=== PATIENT | female | born 2000 | race Hispanic/Latino ===

== ENCOUNTER 2023-12-16 15:27 | Emergency (ER) | payer OTHER, SELFPAY ==
[2023-12-16 15:28] VITALS: BP 135/85; PULSE 65; RESP 16; TEMP 36.3; O2SAT 100; BMI 17.6
--- NOTE | 2023-12-16 15:59 | US_ITS ---
STUDY: ULTRASOUND TRANSVAGINAL CLINICAL: Female, 23 years old. pelvic pain and may be -- pelvic pain and bleeding TECHNIQUE: Transabdominal COMPARISON: None. FINDINGS: Normal uterine size measuring 6.9 x 5.2 x 4.6 cm in maximal craniocaudal dimension. There are no myometrial masses. Normal endometrial thickness measuring 5.9 mm. There are no endometrial masses, and there is no fluid in the endometrial cavity. Normal uterine cervix. Normal right ovary, measuring 2.5 x 1.7 x 1.4 cm. There are multiple follicles without a dominant cyst. Normal left ovary, measuring 1.8 x 2 x 1.4 cm. There are multiple follicles without a dominant cyst. There is no free fluid in the pelvis. US/Transvaginal Non- IMPRESSION: Normal pelvic sonogram for age Electronically Signed: Alfonso Moran MD at 17:25 EDT ,
--- NOTE | 2023-12-16 16:07 | EX.ED.DYSGE1 ---
HPI <Lay Burton RN - Last Filed: 12/16/23 16:15> History of Present Illness Chief Complaint: Abd Pain Informant: patient Onset/Context/Timing Onset: Month(s) (1) Context: Gradual Onset Timing: Continuous Quality: Aching, cramping Location: Lower abdomen Current Severity: 5/10 Maximum Severity: 5/10 Worsened by: Nothing Relieved by: Nothing Associated Symptoms Associated Symptoms: No menses x 3 months Narrative Narrative: Patient is a 23-year-old female, Montserratian speaking, with no past medical history who was referred from the [facility] for lower abdominal pain x 1 month, no menses x 3 months. HPI, exam, and plan of care obtained with the use of computer graphic designer services. Patient with dark brown vaginal bleeding beginning 12/14/2023. Patient reports she feels as if she is bloated. + Nausea. Denies prior abdominal surgeries, prior pregnancies. Patient also reports dysuria, increased urinary frequency, and feeling as if she does not empty her bladder completely. She denies any recent hospitalization or travel. Prior similar symptoms: No Recent Illness/Hospitalization: No PFSH <Lay Burton RN - Last Filed: 12/16/23 16:15> PFSH Allergy/AdvReac Type Severity Reaction Status Date / Time No Known Allergies Allergy Verified 12/16/23 15:31 Social History Smoking Status: Never smoker ROS <aLy Burton RN - Last Filed: 12/16/23 16:15> ROS ED Constitutional Constitutional ED: Denies chills, fever(s) or weight loss Eyes Eyes: Denies change in vision ENT ENT ED: Denies ear pain, rhinorrhea or sore throat Cardiovascular Cardiovascular: Denies chest pain, orthopnea, palpitations or racing heartbeat Respiratory/Chest Respiratory/Chest: Denies cough, dyspnea or orthopnea Gastrointestinal Gastrointestinal: Reports abdominal pain and nausea; Denies constipation, diarrhea, melena or vomiting Genitourinary Genitourinary ED: Reports dysuria, LMP (females 10-50) Details: Comment: (09/15/2023) and urinary frequency; Denies hematuria Musculoskeletal Musculoskeletal: Denies arthralgias, back pain or myalgias Integumentary Denies abscess, Abrasions or rash Neurologic Neurologic: Denies headache(s), paresthesias or weakness Hematologic/Lymphatic Hematologic/Lymphatic: Reports systems reviewed and no addt'l complaints, except as documented EXAM <Lay Burton RN - Last Filed: 12/16/23 16:15> Physical Exam Narrative Exam Narrative: Patient is awake, alert, cooperative, good historian. Const Vital Signs: 12/16/23 15:28 Temperature 97.4 F L Temperature Source Temporal Pulse Rate 65 Respiratory Rate 16 Blood Pressure 135/85 H Blood Pressure Mean 101 Pulse Ox 100 Oxygen Delivery Method Room Air Positive well nourished and well developed General Appearance ED: well developed and NAD HEENT Reports moist mucous membranes Eyes PERRL Neck no lymphadenopathy, supple and no JVD Chest Wall inspection of chest normal and palpation of chest normal Resp normal respiratory effort and clear to auscultation bilaterally Auscultation: Negative for rales, rhonchi or wheezes Cardio regular rate, regular rhythm, S1 normal heart sound and S2 normal heart sound GI normal to inspection, nondistended, normoactive bowel sounds GI Narrative: Lower abdominal tenderness with palpation Auscultation: normoactive bowel sounds Palpation: soft and tender Back/Spine no CVA tenderness Extremity normal to inspection General Extremety ED: Negative for edema or tenderness General Extremity: Negative for edema Neuro oriented x3 Sensorium / Orientation: alert Motor Exam: strength 5/5 throughout Psych mental status grossly normal Skin no rashes or lesions noted, no wounds and skin turgor normal <Dr. Mitesh Hernandez MD - Last Filed: 12/16/23 16:27> Physical Exam Const Vital Signs: 12/16/23 15:28 Temperature 97.4 F L Temperature Source Temporal Pulse Rate 65 Respiratory Rate 16 Blood Pressure 135/85 H Blood Pressure Mean 101 Pulse Ox 100 Oxygen Delivery Method Room Air MDM <Lay Burton RN - Last Filed: 12/16/23 16:15> MDM MDM Narrative Medical decision making narrative: IV line initiated. Labwork obtained to evaluate for leukocytosis, anemia, and electrolyte derangement. Urinalysis obtained to evaluate for infection/hematuria. Pelvic ultrasound obtained to evaluate for , ovarian cyst, acute intra-abdominal process. History & Record Review Discussion w/independent historian: Patient Differential Diagnosis Abdominal Pain: UTI Differential Diagnosis: Management Discussion w/another healthcare provider: Other (Dr. Hernandez, ED provider) <Dr. Mitesh Hernandez MD - Last Filed: 12/16/23 16:27> MDM MDM Narrative Medical decision making narrative: IV line initiated. Labwork obtained to evaluate for leukocytosis, anemia, and electrolyte derangement. Urinalysis obtained to evaluate for infection/hematuria. Pelvic ultrasound obtained to evaluate for , ovarian cyst, acute intra-abdominal process. I have personally performed a face to face assessment of the patient and have reviewed the LAURA Note. I performed a substantive portion of the visit including all aspects of the following. My mathis findings include: History is 23-year-old [id number] female using the computer graphic designer phone complaining of suprapubic pelvic and abdominal discomfort with some mild vaginal bleeding. Has not had a normal menstrual period for around 3 months last one was the end of August. She is never been before. G0, P0. Denies any prior abdominal surgery. Denies any dysuria. Was at an urgent care and referred to the emergency department for further evaluation and workup. Exam is [well-appearing 23-year-old female. Vital signs stable afebrile. No distress. HEENT exam unremarkable. Neck nontender. Lungs clear. Heart regular rhythm no murmur. Abdomen soft, nondistended. Normal bowel sounds. No peritoneal signs. Mild suprapubic tenderness. Possibly enlarged uterus. No hernia or mass. No right upper or right lower quadrant or McBurney's point tenderness. No distention. Moving all 4 extremities. Back nontender. Neurologically she is awake alert with no focal motor deficits.] Medical Decision Making [23-year-old female pelvic pain with no menstrual cycle for around 3 months. May be . Could be a threatened miscarriage. Could be an ectopic versus UTI versus other etiology. Screening labs. Pelvic ultrasound. Currently she is stable.] Other additions or changes: [None] Discharge Plan Triage Chief Complaint: Abd Pain ED Provider: Mitesh Hernandez Dx/Rx/DC Orders Primary Care Provider: Care Physician,Elsa Primary Referrals: NOT,DEFINED [Non-Staff] -
[2023-12-16 16:33] LABS: Absolute Lymphocyte Count 2.37 X10^3/uL (0.83-4.51); Absolute Neutrophil Count 4.9 X10^3/uL (2.0-7.7); Basophil# 0.06 X10^3/uL; Basophil% 0.7 % (0-1); Eosinophils% 3.6 % (0-5); Hematocrit 42.9 % (37-47); Hemoglobin 14.4 g/dL (12.0-15.0); Lymphocyte # 2.37 X10^3/ul (0.83-4.51); Lymphocyte % 28.1 % (19-41); Mean Corp Hgb Conc 33.6 g/dL (32-36); Mean Corpuscular Hgb 28.4 pg (27.0-32.0); Mean Corpuscular Volume 84.6 fL (81-99); Mean Platelet Vol. 8.3 fl (6.2-12.0); Monocyte# 0.74 X10^3/uL; Monocyte% 8.8 % (0-10); NRBC Flagged by Analyzer 0 % (0-5); Neutrophil # 4.93 X10^3/uL (2.7-7.7); Neutrophil % 58.4 % (47-70); Platelet Count 352 K/mm3 (150-450); RBC Distribution Width CV 13.1 % (11.6-14.6); RBC Distribution Width SD 40.1 fl (35.1-43.9); Red Blood Count 5.07 M/mm3 (4.2-5.4); White Blood Count 8.4 K/mm3 (4.4-11.0)
[2023-12-16 16:43] LABS: Internal QC Validated? YES +Cl - CLEAR BKGD; Pregnancy, Serum, hCG Quali. NEGATIVE Negative
[2023-12-16 16:51] LABS: Anion Gap 6 (5-15); BUN 7 mg/dL (7-18); BUN/Creat Ratio 13.6 RATIO (10-20); Calcium,Total 9.3 mg/dL (8.5-10.1); Chloride 109 mmol/L (98-107); Creatinine, Serum 0.52 mg/dL (0.55-1.02); EST Glomerular Filtration Rate 157 mL/min (>60); Est Glom Filt Rate - Afr Amer 190 mL/min (>60); Glucose 89 mg/dL (74-106); Potassium 3.7 mmol/L (3.5-5.1); Sodium Level 139 mmol/L (136-145)
[2023-12-16 17:02] LABS: Mucous, Urine 0 SEEN /hpf (<or=2+)
[2023-12-16 17:06] LABS: Color, Urine Yellow (Yellow); Glucose, Dipstick Normal (Normal); Ketone-Dipstick Negative (Negative); Leukocyte Esterase-Dipstick 25 /ul (Negative); Nitrite-Dipstick Negative (Negative); Occult Blood-Urine 250 /ul (Negative); Protein-Dipstick Negative (Negative); Specific Gravity, Urine 1.015 (1.002-1.030); Urine Bilirubin Dipstick Negative (Negative); Urine Clarity Clear (Clear); Urine Urobilinogen Normal (Normal)
[2023-12-16 17:18] LABS: Red Blood Cells-Urine 5-10 SEEN /hpf (0-5); Squamous Epithelial Cells - UA 0-5 SEEN /hpf (5-10); White Blood Cells 0-5 SEEN /hpf (0-5)
[2023-12-16 17:19] LABS: Bacteria RARE /hpf (None Seen)
[2023-12-16 17:28] VITALS: BP 127/63; PULSE 74; RESP 14; O2SAT 98
--- NOTE | 2023-12-16 18:02 | EDS_ITS ---
HPI HPI - Female History of Present Illness Chief Complaint: Abd Pain Detail of Chief Complaint: Pelvic pain and mild bleeding for several days. Informant: patient Pain Pain: Positive for Pelvic Pain Onset: Days Context: Gradual Onset Timing: Intermittent Quality: Positive for Cramping Current Severity: Mild Maximum Severity: Mild Bleeding Issue: Positive for Vaginal bleeding; Negative for Passing clots or Passing tissue Onset: Days Context: Gradual Onset Timing: Intermittent Current Severity: Spotting Associated Symptoms Associated Symptoms: Negative for Dysuria, Frequency, Urgency or Hematuria Sexually: Positive for Active P: 0 Ab: 0 Narrative Narrative: 23-year-old female 7-day history of intermittent mild vaginal bleeding. No menstrual period since August. No prior history of . G0, P0. She is speaking or using the chief resource officer phone. Her boyfriend is with her does understand some [place]ymraes also. She denies any fever. No prior abdominal surgery. Denies any vaginal discharge or prior vaginal infection. No significant past medical history. Prior similar symptoms: No Recent Illness/Hospitalization: No PFSH PFSH no medical history Home Medications NK 12/16/23 [History Last Taken Unknown] Allergy/AdvReac Type Severity Reaction Status Date / Time No Known Allergies Allergy Verified 12/16/23 15:31 no surgical history Social History Smoking Status: Never smoker ROS ROS ED ROS Narrative Vaginal bleeding. Pelvic discomfort. Review of Systems ROS Unobtainable: Denies due to encephalopathy Constitutional Constitutional ED: Denies chills, fever(s) or subjective Eyes Eyes: Denies blurry vision, change in vision or diplopia ENT ENT ED: Denies ear pain, rhinorrhea or sore throat Cardiovascular Cardiovascular: Denies chest pain Respiratory/Chest Respiratory/Chest: Denies cough or dyspnea Gastrointestinal Gastrointestinal: Reports abdominal pain; Denies constipation, diarrhea, melena, nausea or vomiting Genitourinary Genitourinary ED: Denies hematuria Musculoskeletal Musculoskeletal: Denies arthralgias or myalgias Integumentary Denies abscess or Abrasions Neurologic Neurologic: Denies headache(s) or paresthesias Psychiatric Psychiatric: Denies anxiety or depression Endocrine Endocrinology: Denies heat intolerance Hematologic/Lymphatic Hematologic/Lymphatic: Denies easy bleeding or easy bruising Allergic/Immunologic Allergic/Immunologic ED: Denies mouth swelling or tongue swelling EXAM Physical Exam Narrative Exam Narrative: Well-appearing 21-year-old female. Vital signs stable afebrile. She does not look septic toxic no distress. HEENT exam unremarkable. Neck nontender. Lungs clear. Heart regular rhythm rate about 70 no murmur. Chest wall ribs nontender. Abdomen soft nondistended normal bowel sounds no peritoneal signs. No hernia or mass. No obstruction. Right upper or right lower quadrant unremarkable. Very mild suprapubic abdominal tenderness. Pelvic exam done female nurse present in the room and the patient's significant other. On speculum exam she has a very small amount of blood at the cervix. No discharge. Cervix closed. No signs of STD or discharge. No signs of any cervical motion tenderness or PID. There is no vaginal clots or significant bleeding. There is no significant uterine tenderness. No adnexal masses or tenderness. Moving all 4 extremities. Nontender no edema. She is awake and alert. Const Vital Signs: 12/16/23 15:28 12/16/23 17:28 Temperature 97.4 F L Temperature Source Temporal Pulse Rate 65 74 Respiratory Rate 16 14 Blood Pressure 135/85 H 127/63 H Blood Pressure Mean 101 84 Pulse Ox 100 98 Oxygen Delivery Method Room Air Room Air Positive well nourished and well developed; Negative for obese, cachectic, contractures or unkempt General Appearance ED: well developed and NAD; Negative for unkempt, cachectic, contractures or pallor Nutritional Appearance: Negative for cachectic or obese HEENT Reports moist mucous membranes Negative for trauma or tenderness Eyes PERRL and EOMs intact bilaterally General Eye ED: Negative for pale conjunctiva, scleral icterus or other Neck no lymphadenopathy, supple and no JVD General: Negative for other Thyroid: Negative for tender Lymph Lymphatic: Negative for other Chest Wall inspection of chest normal and palpation of chest normal Chest: Negative for other Resp normal respiratory effort and clear to auscultation bilaterally Effort and Inspection: Negative for pain with movement Auscultation: Negative for rales, rhonchi or wheezes Cardio regular rate, regular rhythm, S1 normal heart sound, no murmurs and no JVD Rhythm: Negative for abnormal rhythm GI normal to inspection, nondistended, normoactive bowel sounds, soft to palpation and non-distended; Negative for non-tender GI Narrative: Mild suprapubic tenderness only. Auscultation: normoactive bowel sounds Palpation: tender; Negative for guarding or mass Back/Spine no CVA tenderness General Back: Negative for CVA tenderness Cervical Spine: Negative for cervical spine tenderness Thoracic Spine / Upper Back: Negative for thoracic spinal tenderness Lumbar Spine / Lower Back: Negative for lumbar spinal tenderness Extremity normal to inspection and full ROM General Extremety ED: Negative for edema or tenderness General Extremity: Negative for edema Neuro oriented x3 and CN's II-XII intact bilaterally Sensorium / Orientation: alert, oriented to person, oriented to place and oriented to time; Negative for confused, lethargic or stuporous Motor Exam: strength 5/5 throughout; Negative for general weakness or strength abnormal Psych mental status grossly normal Appearance: Negative for unkempt Attitude: No agitated Speech: No other Mood & Affect: Negative for depressed, anxious or tearful Skin no rashes or lesions noted and no wounds General Skin Exam: Negative for jaundice or pallor Rashes: No rashes noted Trauma: Negative for other MDM MDM MDM Narrative Medical decision making narrative: 23-year-old female with suprapubic pelvic and abdominal pain. Mild vaginal bleeding. Rule out . Versus ectopic versus miscarriage. Labs and ultrasound being obtained. Pelvic exam was already done and was unremarkable. Patient doing well at 6 PM. We discussed all her test results with her and her using chief resource officer phone. He will be discharged home with outpatient follow-up with ACTUARIAL ASSISTANT on-call Dr. Delatorre. History & Record Review Discussion w/independent historian: Patient and Family Additional record(s) reviewed:: No prior records Lab Data Attestation: I reviewed the patient's lab results. Lab results narrative: CBC normal. White count 8. H&H 14 and 42. Platelets 352. BMP unremarkable. Gap 6. Normal BUN and creatinine. Glucose 89. Serum test negative. UA negative. No infection. Pelvic ultrasound unremarkable. Labs: Laboratory Results - last 24 hr 12/16/23 12/16/23 16:20 16:50 WBC 8.4 RBC 5.07 Hgb 14.4 Hct 42.9 MCV 84.6 MCH 28.4 MCHC 33.6 RDW Std Deviation 40.1 RDW Coeff of Jacquelin 13.1 Plt Count 352 MPV 8.3 Immature Gran % (Auto) 0.400 Neut % (Auto) 58.4 Lymph % (Auto) 28.1 [place] % (Auto) 8.8 Eos % (Auto) 3.6 Baso % (Auto) 0.7 Absolute Neuts (auto) 4.9 Absolute Lymphs (auto) 2.37 Nucleated RBC % 0 Sodium 139 Potassium 3.7 Chloride 109 H Carbon Dioxide 24.0 Anion Gap 6 BUN 7 Creatinine 0.52 L Estim Creat Clear Calc 109.90 Est GFR (MDRD) Af Amer 190 Est GFR (MDRD) Non-Af 157 BUN/Creatinine Ratio 13.6 Glucose 89 Calcium 9.3 Serum , Qual NEGATIVE Urine Color Yellow Urine Clarity Clear Urine pH 6.0 Ur Specific [place] 1.015 Urine Protein Negative Urine Glucose (UA) Normal Urine Ketones Negative Urine Occult Blood 250 H Urine Nitrite Negative Urine Bilirubin Negative Urine Urobilinogen Normal Ur Leukocyte Esterase 25 H Urine RBC 5-10 SEEN Urine WBC 0-5 SEEN Ur Squamous Epith Cells 0-5 SEEN Urine Bacteria RARE Urine Mucus 0 SEEN Radiography Diagnostic Testing: Clinical Impression(s) from Imaging Studies Transvaginal US 12/16/23 15:59 IMPRESSION: Normal pelvic sonogram for age Electronically Signed: Alfonso Moran MD at 17:25 EDT Reading Location ID and State: [address] [place] [address] Tel , Service support , Discharge Plan Triage Chief Complaint: Abd Pain ED Provider: Mitesh Hernandez Dx/Rx/DC Orders Clinical Impression: Pelvic pain, Vaginal bleeding Instructions: Understanding Uterine Bleeding, ED Pelvic Pain, Unknown Cause Prescriptions: No Action NK Primary Care Provider: Care Physician,No Primary Referrals: Meghan Delatorre MD [Med Staff - Active Staff] - 1-2 Weeks NOT,DEFINED [Non-Staff] - 1-2 Weeks Activity Restrictions/Additional Instructions: Your labs and ultrasound are normal. You are not . Tylenol and Motrin for pain. Call and follow-up with [facility] in 1 to 2 weeks. Return to ED for worsening or concerning symptoms. Print Language: Panamanian Disposition Disposition: Home, Self Care
[2023-12-16 18:28] VITALS: BP 100/64; PULSE 72; RESP 16; TEMP 36.2; O2SAT 98
== END 2023-12-16 18:29 | disposition home or self-care (01) ==
PROVIDERS: Emergency Provider Emergency Medicine; Visit Provider Emergency Medicine
DX: R10.2 Pelvic and perineal pain (principal); N93.9 Abnormal uterine and vaginal bleeding, unspecified
CPT/HCPCS: 76830; 80048; 81001; 84703; 85025; 99283